=== PATIENT | female | born 1945 | race Caucasian/White ===

== ENCOUNTER 2018-12-09 05:26 | Emergency (ER) | payer MEDICARE ==
[2018-12-09 06:39] LABS: #Eosinphils 0.1 thou/uL (0.0-0.7); #Lymphocytes 0.9 thou/uL (1.20-3.40); #Monocytes 0.3 thou/uL (0.11-0.59); #Neutrophils 3.6 thou/uL (1.40-6.50); %Basophils 0.7 % (0.0-1.0); %Eosinophils 2.6 % (0.0-10.0); %Lymphocytes 18.1 % (21.0-51.0); %Monocytes 5.8 % (0.0-10.0); %Neutrophils 72.8 % (42.0-75.0); Hemoglobin 14.8 g/dL (12.0-16.0); Mean Corpuscular HGB CONC 33.7 g/dL (32.0-36.0); Mean Corpuscular Hemoglobin 30.9 pg (27.0-31.0); Mean Corpuscular Volume 91.8 fL (78.0-98.0); Mean Platelet Volume 6.8 fL (7.4-10.4); Platelet Count 224 thou/uL (130-400); RBC Distribution Width 12.1 % (11.5-14.5); Red Blood Cell (RBC) Count 4.79 mill/uL (4.20-5.40); White Blood Cell (WBC) Count 4.9 thou/uL (4.8-10.8)
[2018-12-09] MEDS ORDERED: Ondansetron ODT 4 MG TAB ONE (06:49)
[2018-12-09 07:03] LABS: ALT (SGPT) 17 U/L (8-55); AST (SGOT) 10 U/L (5-34); Albumin 4.2 g/dL (3.4-4.8); Alkaline Phosphatase 71 U/L (40-110); Anion Gap 10 mmol/L (10-20); BUN (Urea Nitrogen) 6 mg/dL (9.8-20.1); Bilirubin, Total 0.6 mg/dL (0.2-1.2); CK (CPK) 98 U/L (29-168); Calc. Creatinine Clearance 0 mL/min (70-130); Calcium 9.2 mg/dL (7.8-10.44); Carbon Dioxide 25 mmol/L (23-31); Chloride 106 mmol/L (98-107); Estimated GFR-MDRD 87; Globulin 2.4 g/dL (2.4-3.5); Glucose 112 mg/dL (83-110); Potassium 3.4 mmol/L (3.5-5.1); Protein, Total 6.6 g/dL (6.0-8.3); Sodium 138 mmol/L (136-145)
--- NOTE | 2018-12-09 07:41 | RAD ---
EXAM: Single view of the chest HISTORY: Chest palpitations COMPARISON: None FINDINGS: Single view of the chest shows a normal sized cardiomediastinal silhouette. There is no melissa dence of consolidation, mass, or pleural effusion. Degenerative changes are seen in the spine. IMPRESSION: No evidence of acute cardiopulmonary disease
--- NOTE | 2018-12-11 12:46 | EKG ---
Test Reason : Blood Pressure : / mmHG Vent. Rate : 085 BPM Atrial Rate : 085 BPM P-R Int : 148 ms QRS Dur : 080 ms QT Int : 360 ms P-R-T Axes : 056 -01 050 degrees QTc Int : 428 ms Normal sinus rhythm Moderate voltage criteria for LVH, may be normal variant Nonspecific ST abnormality Abnormal ECG Confirmed by MIHAI IYER D.O. ([id number]), video news editor VÍCTOR CAMEJO ([id number]) on 12/11/2018 12:46:43 PM Referred By: Confirmed By:MIHAI IYER D.O.
== END 2018-12-09 07:30 | disposition home or self-care (01) ==
LOC: ERS 05:26
DX: F41.9 Anxiety disorder, unspecified (principal); F41.0 Panic disorder [episodic paroxysmal anxiety]; Z79.899 Other long term (current) drug therapy
CPT/HCPCS: 36415; 71045; 80053; 82550; 84443; 84484; 85025; 93005; Q0162

== ENCOUNTER 2019-03-02 09:12 | Outpatient (CLI) | payer MEDICARE ==
[2019-03-02 11:39] LABS: #Basophils 0.1 thou/uL (0.0-0.2); #Eosinphils 0.2 thou/uL (0.0-0.7); #Lymphocytes 1.2 thou/uL (1.20-3.40); #Monocytes 0.4 thou/uL (0.11-0.59); #Neutrophils 5.9 thou/uL (1.40-6.50); %Basophils 0.7 % (0.0-1.0); %Eosinophils 2.2 % (0.0-10.0); %Monocytes 5.2 % (0.0-10.0); %Neutrophils 75.9 % (42.0-75.0); Hemoglobin 15.5 g/dL (12.0-16.0); Mean Corpuscular HGB CONC 32.9 g/dL (32.0-36.0); Mean Corpuscular Hemoglobin 30.8 pg (27.0-31.0); Mean Corpuscular Volume 93.5 fL (78.0-98.0); Mean Platelet Volume 7.6 fL (7.4-10.4); Platelet Count 253 thou/uL (130-400); RBC Distribution Width 12.3 % (11.5-14.5); Red Blood Cell (RBC) Count 5.05 mill/uL (4.20-5.40); White Blood Cell (WBC) Count 7.8 thou/uL (4.8-10.8)
[2019-03-02 12:01] LABS: ALT (SGPT) 17 U/L (8-55); AST (SGOT) 11 U/L (5-34); Albumin 4.4 g/dL (3.4-4.8); Alkaline Phosphatase 92 U/L (40-110); Anion Gap 10 mmol/L (10-20); BUN (Urea Nitrogen) 10 mg/dL (9.8-20.1); Bilirubin, Total 0.5 mg/dL (0.2-1.2); Calc. Creatinine Clearance 0 mL/min (70-130); Calcium 9.7 mg/dL (7.8-10.44); Carbon Dioxide 28 mmol/L (23-31); Chloride 106 mmol/L (98-107); Estimated GFR-MDRD 74; Globulin 2.7 g/dL (2.4-3.5); Glucose 122 mg/dL (83-110); Potassium 4.2 mmol/L (3.5-5.1); Protein, Total 7.1 g/dL (6.0-8.3); Sodium 140 mmol/L (136-145)
--- NOTE | 2019-03-04 15:21 | EKG ---
Test Reason : Blood Pressure : / mmHG Vent. Rate : 080 BPM Atrial Rate : 080 BPM P-R Int : 140 ms QRS Dur : 080 ms QT Int : 358 ms P-R-T Axes : 070 066 056 degrees QTc Int : 412 ms Normal sinus rhythm Cannot rule out Anterior infarct , age undetermined Abnormal ECG When compared with ECG of 09-DEC-2018 05:43, Questionable change in QRS axis Confirmed by DR. Manohar BROWN ([id number]) on 03/04/2019 3:20:48 PM Referred By: IVAN Confirmed By:DR. Manohar BROWN
== END 2019-03-02 09:13 | disposition home or self-care (01) ==
LOC: LABBT 09:12
PROVIDERS: ATTEND Surgery
DX: Z01.818 Encounter for other preprocedural examination (principal); K43.2 Incisional hernia without obstruction or gangrene
CPT/HCPCS: 80053; 85025; 93005; 93010

== ENCOUNTER 2019-03-07 05:45 | Day surgery (SDC) | payer MEDICARE ==
[2019-03-02 10:06] VITALS: BMI 24.9
[2019-03-07] MEDS ORDERED: Midazolam HCl 2 mg/2 ml Vial ONE (06:32)
[2019-03-07] MEDS ORDERED: Fentanyl 100 MCG/2 ML VIAL ONE ×2 (06:32→08:47)
[2019-03-07] MEDS ORDERED: HYDROmorphone 0.5 MG/0.5 ML SYRINGE ONE (06:32)
[2019-03-07] MEDS ORDERED: SUGAMMADEX SODIUM 200 MG/2 ML VIAL ONE (06:33)
[2019-03-07] MEDS ORDERED: Lidocaine 1% w/Epinephrine 1:100K 20 ML VIAL ONE (06:46)
[2019-03-07] MEDS ORDERED: Bupivacaine 0.25% HCL 30 ML VIAL ONE (06:46)
--- NOTE | 2019-03-07 09:40 | HP ---
CHIEF COMPLAINT: Abdominal wall hernia. HISTORY: A 74-year-old female who underwent a lap sigmoid resection for diverticulitis in February 2016, has developed a bulge under the umbilicus that is enlarging. PAST MEDICAL HISTORY: Back pain, prolapsed bladder, indigestion, anxiety, diverticulosis. PAST SURGICAL HISTORY: She has had a hysterectomy, lap sigmoid colectomy, colovesical fistula repair, basal cell carcinoma removal. MEDICATIONS: 1. Estrace. 2. Tumersaid. 3. B12. 4. Vitamin D. 5. Alprazolam. 6. Omeprazole. 7. Xanax. ALLERGIES: BACTRIM, GLUTEN, CODEINE, AND SUNSCREEN. FAMILY HISTORY: Father of heart disease. Mother of emphysema. SOCIAL HISTORY: She is . No tobacco. No alcohol. PHYSICAL EXAMINATION: VITAL SIGNS: Height 63, weight 144, body mass index 25. GENERAL: A well-developed, well-nourished female, in no apparent distress. HEENT: Unremarkable. LUNGS: Clear. HEART: Regular rate and rhythm. ABDOMEN: Shows a 4 cm defect just below the umbilicus that is reducible. EXTREMITIES: Good pulses, no pedal edema. ASSESSMENT: Incisional ventral hernia. PLAN: Laparoscopic ventral hernia repair with mesh. CONSENT: I have discussed planned procedure as well as risk of bleeding, infection, recurrence, injury to bowel. She understands and gives informed consent. Job ID: [id number]
[2019-03-07] MEDS ORDERED: Morphine 2 MG/ML SYRINGE ONE (09:57)
[2019-03-07] MEDS ORDERED: HYDROcodone/Acetaminophen 5/325 mg Tablet ONE ×2 (10:07→12:14)
--- NOTE | 2019-03-07 11:36 | OP ---
DATE OF PROCEDURE: 03/07/2019 PREOPERATIVE DIAGNOSIS: Incisional ventral hernia. PROCEDURE PERFORMED: Laparoscopic ventral hernia repair with mesh. INDICATIONS: This is a 74-year-old female, who had a sigmoid colon resection, developed a hernia. FINDINGS: She has a 3-cm defect, 12-cm piece of mesh used. DESCRIPTION OF PROCEDURE: After informed consent was obtained, the patient was taken to the operating room and given general endotracheal anesthesia. She was placed in supine position. Her abdomen and flank were prepped and draped in usual fashion. Local anesthesia was infiltrated subcutaneously and deep and a 12-mm incision was performed on the right flank. Veress needle inserted. Drop test performed. Pneumoperitoneum was created to a volume of 2 L of carbon dioxide. Utilizing a bladeless 12-mm trocar and 0-degree laparoscope, direct visual entry into the abdominal cavity was performed. Pneumoperitoneum was created to a pressure of 15 mmHg and under direct vision, two 5-mm ports were placed far lateral right abdomen. There were no adhesions to the anterior abdominal wall. The defect was closed transversely utilizing a 0 PDS V-Loc from left to right. Then, a 12-cm piece of PROCEED mesh was fashioned with four 0 Ethibond in 4 quadrants. This was hydrated, rolled, and introduced intra-abdominally. Then, the abdominal pressure was decreased to 12 and the sutures were individually grasped with the granny needle to position the mesh optimally. These were secured and then the mesh was further secured to the abdominal wall with SecureStrap Tacker. Hemostasis assured. Trocars and retractors removed. The skin closed with interrupted 4-0 Rapide. Dermabond applied and a sterile bandage applied and a binder applied. The patient tolerated the procedure well, transferred to Recovery in good condition. Sponge and needle count verified correct x2. Job ID: [id number]
[2019-03-07] MEDS ORDERED: Ondansetron ODT 4 MG TAB ONE (12:33)
[2019-03-07] MEDS ORDERED: Dexamethasone 20 MG/5 ML VIAL ONE (13:58)
[2019-03-07] MEDS ORDERED: Rocuronium Bromide 10 MG/ML (10ML VIAL) ONE (13:58)
[2019-03-07] MEDS ORDERED: PROPOFOL 200 MG/20 ML VIAL ONE (13:58)
[2019-03-07] MEDS ORDERED: Ondansetron PF 4 MG/2 ML Vial ONE (13:58)
== END 2019-03-07 13:13 | disposition home or self-care (01) ==
LOC: SDC 05:45
PROVIDERS: ATTEND Surgery
PROC: 0WUF4JZ Supplement Abdominal Wall with Synthetic Substitute, Percutaneous Endoscopic Approach (ICD-10-PCS; principal; 2019-03-07)
DX: K43.2 Incisional hernia without obstruction or gangrene (principal); Z79.899 Other long term (current) drug therapy; Z85.828 Personal history of other malignant neoplasm of skin; Z87.19 Personal history of other diseases of the digestive system; Z88.1 Allergy status to other antibiotic agents; Z88.2 Allergy status to sulfonamides; Z88.5 Allergy status to narcotic agent; Z90.49 Acquired absence of other specified parts of digestive tract; Z91.011 Allergy to milk products; Z91.018 Allergy to other foods; Z91.048 Other nonmedicinal substance allergy status
CPT/HCPCS: 49654; C1781; J0690; J1100; J1170; J2250; J2270; J2405; J2704; J3010; Q0162; S0020

== ENCOUNTER 2022-01-18 18:27 | Inpatient (IN) | payer MEDICARE ==
[~2022-01-18 18:27] MED LIST: Iopamidol-370 76% 500 ML 1 ML ONE
[2022-01-18] MEDS ORDERED: Ondansetron PF 4 MG/2 ML Vial ONE (18:57)
[2022-01-18] MEDS ORDERED: Ketorolac Tromethamine 30 MG/ML VIAL ONE (18:57)
[2022-01-18] MEDS ORDERED: Morphine 4 MG/ML VIAL ONE (18:58)
[2022-01-18 19:08] LABS: #Eosinphils 0.3 thou/uL (0.0-0.7); #Lymphocytes 2.8 thou/uL (1.20-3.40); #Monocytes 0.5 thou/uL (0.11-0.59); #Neutrophils 5.3 thou/uL (1.40-6.50); %Basophils 0.5 % (0.0-1.0); %Eosinophils 2.9 % (0.0-10.0); %Lymphocytes 31.1 % (21.0-51.0); %Monocytes 5.9 % (0.0-10.0); %Neutrophils 59.7 % (42.0-75.0); Hemoglobin 15.5 g/dL (12.0-16.0); Mean Corpuscular Hemoglobin 32.2 pg (27.0-31.0); Mean Corpuscular Volume 94.6 fl (78.0-98.0); Mean Platelet Volume 7.8 fL (7.4-10.4); Platelet Count 257 10x3/uL (130-400); RBC Distribution Width 12.4 % (11.5-14.5); Red Blood Cell (RBC) Count 4.82 mill/uL (4.20-5.40); White Blood Cell (WBC) Count 8.9 10x3/uL (4.8-10.8)
[2022-01-18 19:32] LABS: ALT (SGPT) 20 U/L (8-55); AST (SGOT) 11 U/L (5-34); Albumin 4.5 g/dL (3.4-4.8); Alkaline Phosphatase 106 U/L (40-110); Anion Gap 16 mmol/L (10-20); BUN (Urea Nitrogen) 13 mg/dL (9.8-20.1); Bilirubin, Total 0.3 mg/dL (0.2-1.2); Calc. Creatinine Clearance 0 mL/min (70-130); Calcium 10.4 mg/dL (7.8-10.44); Carbon Dioxide 21 mmol/L (23-31); Chloride 105 mmol/L (98-107); Estimated GFR 70; Globulin 3.1 g/dL (2.4-3.5); Glucose 133 mg/dL (83-110); Lipase 24 U/L (8-78); Potassium 3.1 mmol/L (3.5-5.1); Protein, Total 7.6 g/dL (5.8-8.1); Sodium 139 mmol/L (136-145)
[2022-01-18 20:44] LABS: Bacteria/HPF 4+ HPF (None Seen); Bilirubin Negative (Negative); Blood, Urine Trace (Negative); Clarity Turbid (Clear); Glucose, Urine (Dipstick) Normal (Negative); Ketone, Urine Negative (Negative); Leukocyte 250 Leu/uL (Negative); Nitrite 2+ (Negative); Protein, Urine (Dipstick) Negative (Neg-Trace); Specific Gravity, Urine 1.023 (1.002-1.036); Squamous Epithelial 0-3 HPF (0-3); Urobilinogen Normal mg/dL (Less than 2)
[2022-01-18] MEDS ORDERED: cefTRIAXone\\ROCEPHIN 1 GM VIAL ONE (21:31)
[2022-01-18] MEDS ORDERED: Ondansetron ODT 4 MG TAB PO PRN (22:07)
[2022-01-18] MEDS ORDERED: Senokot S 8.6-50 MG TAB PO PRN (22:07)
[2022-01-18] MEDS ORDERED: Acetaminophen 325 MG TAB PO PRN (22:07)
[2022-01-18] MEDS ORDERED: Dextrose 5 %-0.45 % NaCl 1,000 ML IV SCH (22:15)
[2022-01-18] MEDS ORDERED: Morphine 4 MG/ML VIAL SLOW IVP PRN (22:27)
[2022-01-18] MEDS ORDERED: Vancomycin 1 GM/200 ML (FROZEN) BAG ONE (22:31)
[2022-01-18] MEDS ORDERED: Potassium Chloride 20 MEQ TAB ONE (22:31)
[2022-01-18 22:47] LABS: Lactic Acid 1.5 mmol/L (0.5-2.2)
[2022-01-19 00:17] VITALS: BMI 25.3
[2022-01-19 07:50] LABS: #Eosinphils 0.1 thou/uL (0.0-0.7); #Lymphocytes 1.1 thou/uL (1.20-3.40); #Monocytes 0.6 thou/uL (0.11-0.59); #Neutrophils 8.5 thou/uL (1.40-6.50); %Basophils 0.1 % (0.0-1.0); %Eosinophils 0.5 % (0.0-10.0); %Lymphocytes 10.4 % (21.0-51.0); %Monocytes 5.6 % (0.0-10.0); %Neutrophils 83.4 % (42.0-75.0); Hemoglobin 13.5 g/dL (12.0-16.0); Mean Corpuscular Hemoglobin 31.2 pg (27.0-31.0); Mean Corpuscular Volume 97.7 fl (78.0-98.0); Mean Platelet Volume 7.4 fL (7.4-10.4); Platelet Count 200 10x3/uL (130-400); RBC Distribution Width 12.5 % (11.5-14.5); Red Blood Cell (RBC) Count 4.33 mill/uL (4.20-5.40); White Blood Cell (WBC) Count 10.1 10x3/uL (4.8-10.8)
[2022-01-19 08:04] LABS: Anion Gap 11 mmol/L (10-20); BUN (Urea Nitrogen) 8 mg/dL (9.8-20.1); Calc. Creatinine Clearance 75 mL/min (70-130); Calcium 8.7 mg/dL (7.8-10.44); Carbon Dioxide 23 mmol/L (23-31); Chloride 110 mmol/L (98-107); Estimated GFR 90; Glucose 109 mg/dL (83-110); Potassium 3.8 mmol/L (3.5-5.1); Sodium 140 mmol/L (136-145)
[2022-01-19] MEDS: Cefepime 2 GM in Sodium Chloride 0.9% 100 ML IVPB SCH ×2 (09:29→21:26)
[2022-01-19] MEDS ORDERED: Bisacodyl 5 MG TAB PO SCH (10:30)
[2022-01-19] MEDS: Potassium Citrate 1100-334mg/5ml Oral Solution PO SCH (21:27)
[2022-01-20] MEDS: Potassium Citrate 1100-334mg/5ml Oral Solution PO SCH ×2 (06:35→12:46)
[2022-01-20] MEDS ORDERED: Tamsulosin HCl 0.4 MG CAP PO SCH (09:00)
[2022-01-20] MEDS ORDERED: Allopurinol 300 MG TAB PO SCH (09:00)
[2022-01-20] MEDS ORDERED: Polyethylene Glycol 3350 17 GM Packet PO SCH (09:00)
[2022-01-20] MEDS: Cefepime 2 GM in Sodium Chloride 0.9% 100 ML IVPB SCH (09:34)
[2022-01-20] MEDS ORDERED: cefTRIAXone\\ROCEPHIN 2 GM in Sodium Chloride 0.9% 100 ML IVPB SCH (10:00)
[2022-01-20] MEDS ORDERED: Cefdinir 300 MG CAP PO SCH (12:15)
[2022-01-20 12:31] VITALS: BP 134/78; TEMP 97.8
== END 2022-01-20 13:57 | disposition home or self-care (01) | DRG 690 ==
LOC: ERS 18:27 → INTOOBSV 21:59 → SURG B 21:59 → OBSVTOIN 01-20 13:30
PROVIDERS: ADMIT Student in an Organized Health Care Education/Training Program; ATTEND Internal Medicine
DX: N12 Tubulo-interstitial nephritis, not specified as acute or chronic (principal); E87.20 Acidosis, unspecified; E87.6 Hypokalemia; Z20.822 Contact with and (suspected) exposure to COVID-19; E27.8 Other specified disorders of adrenal gland; B96.20 Unspecified Escherichia coli [E. coli] as the cause of diseases classified elsewhere; N20.0 Calculus of kidney; I10 Essential (primary) hypertension; Z90.49 Acquired absence of other specified parts of digestive tract; Z88.6 Allergy status to analgesic agent; Z88.2 Allergy status to sulfonamides; Z88.8 Allergy status to other drugs, medicaments and biological substances; Z79.899 Other long term (current) drug therapy; Z90.710 Acquired absence of both cervix and uterus; Z98.41 Cataract extraction status, right eye; Z98.42 Cataract extraction status, left eye; Z90.89 Acquired absence of other organs
CPT/HCPCS: 36415; 71275; 74018; 74174; 80048; 80053; 81003; 81015; 83605; 83690; 84484; 85025; 87040; 87077; 87086; 87186; 93005; 96366; 96367; 96372; 96376; G0378; J0692; J0696; J1885; J2270; J2405; J3370-JW; J3490; J7042; Q0162; U0003; U0005

== ENCOUNTER 2022-10-26 10:01 | Inpatient (IN) | payer MEDICARE ==
[2022-10-26 10:27] LABS: #Eosinphils 0.1 thou/uL (0.0-0.7); #Monocytes 0.3 thou/uL (0.11-0.59); #Neutrophils 6.3 thou/uL (1.40-6.50); %Basophils 0.3 % (0.0-1.0); %Eosinophils 1.2 % (0.0-10.0); %Lymphocytes 12.9 % (21.0-51.0); %Monocytes 4.1 % (0.0-10.0); Mean Corpuscular HGB CONC 33.3 g/dL (32.0-36.0); Mean Corpuscular Hemoglobin 31.7 pg (27.0-31.0); Mean Corpuscular Volume 95.1 fl (78.0-98.0); Mean Platelet Volume 9.4 fL (7.4-10.4); Platelet Count 236 10x3/uL (130-400); RBC Distribution Width 13.1 % (11.5-14.5); Red Blood Cell (RBC) Count 4.73 mill/uL (4.20-5.40); White Blood Cell (WBC) Count 7.7 10x3/uL (4.8-10.8)
[2022-10-26] MEDS ORDERED: Ondansetron PF 4 MG/2 ML Vial ONE (10:34)
[2022-10-26 10:42] LABS: Bacteria/HPF 1+ HPF (None Seen); Bilirubin Negative (Negative); Blood, Urine Negative (Negative); CAUTI Indications for Culture Dysuria,urgency,freq; Clarity Turbid (Clear); Glucose, Urine (Dipstick) Normal (Negative); Ketone, Urine Negative (Negative); Leukocyte 500 Leu/uL (Negative); Nitrite Negative (Negative); Protein, Urine (Dipstick) Negative (Neg-Trace); RBC/HPF 0-3 HPF (0-3); Urobilinogen Normal mg/dL (Less than 2); WBC/HPF Greater than 50 HPF (0-3); pH, Urine 7.5 (5.0-9.0)
[2022-10-26 10:44] LABS: Urine Culture Reflex Yes Yes
[2022-10-26] MEDS ORDERED: Ketorolac Tromethamine 30 MG/ML VIAL ONE ×2 (10:46→14:49)
[2022-10-26 10:52] LABS: ALT (SGPT) 16 U/L (8-55); AST (SGOT) 11 U/L (5-34); Albumin 4.2 g/dL (3.4-4.8); Alkaline Phosphatase 68 U/L (40-110); Anion Gap 17 mmol/L (10-20); BUN (Urea Nitrogen) 14 mg/dL (9.8-20.1); Bilirubin, Total 0.7 mg/dL (0.2-1.2); Calc. Creatinine Clearance 0 mL/min (70-130); Calcium 9.7 mg/dL (7.8-10.44); Carbon Dioxide 20 mmol/L (23-31); Chloride 105 mmol/L (98-107); Estimated GFR 59; Globulin 2.8 g/dL (2.4-3.5); Glucose 135 mg/dL (83-110); Sodium 138 mmol/L (136-145)
[2022-10-26] MEDS ORDERED: Morphine 4 MG/ML VIAL ONE (12:47)
[2022-10-26] MEDS ORDERED: Promethazine HCl 25 MG/ML VIAL ONE (12:56)
[2022-10-26] MEDS ORDERED: cefTRIAXone (ROCEPHIN) 1 GM VIAL ONE (13:52)
[2022-10-26] MEDS ORDERED: Guaifenesin DM 100-10/5 ML UDCUP PO PRN (14:32)
[2022-10-26] MEDS ORDERED: Ondansetron PF 4 MG/2 ML Vial IVP PRN (14:32)
[2022-10-26] MEDS ORDERED: Senokot S 8.6-50 MG TAB PO PRN (14:32)
[2022-10-26] MEDS ORDERED: Acetaminophen 325 MG TAB PO PRN (14:32)
[2022-10-26] MEDS ORDERED: Sodium Chloride 0.9% 1,000 ML IV SCH (14:45)
[2022-10-26 18:02] VITALS: BMI 24.6
[2022-10-26] MEDS ORDERED: Ketorolac Tromethamine 30 MG/ML VIAL IVP PRN (18:13)
[2022-10-26] MEDS ORDERED: Famotidine/PF 20 mg/2ml Vial SLOW IVP SCH (21:00)
[2022-10-27] MEDS ORDERED: Ondansetron PF 4 MG/2 ML Vial IVP PRN (04:19)
[2022-10-27] MEDS ORDERED: Guaifenesin DM 100-10/5 ML UDCUP PO PRN (04:20)
[2022-10-27] MEDS ORDERED: Ketorolac Tromethamine 30 MG/ML VIAL IVP PRN (04:20)
[2022-10-27] MEDS ORDERED: Senokot S 8.6-50 MG TAB PO PRN (04:20)
[2022-10-27] MEDS: Acetaminophen 325 MG TAB PO PRN (04:26)
[2022-10-27] MEDS: Famotidine/PF 20 mg/2ml Vial SLOW IVP SCH ×2 (08:30→20:31)
[2022-10-27] MEDS ORDERED: cefTRIAXone\\ROCEPHIN 1 GM in Sodium Chloride 0.9% 100 ML IVPB SCH (14:00)
[2022-10-27] MEDS ORDERED: fentaNYL PF 100 MCG/2 ML SYRINGE ONE (17:52)
[2022-10-27] MEDS ORDERED: Lidocaine 1% PF 5 ML VIAL ONE (18:27)
[2022-10-27] MEDS ORDERED: Ondansetron PF 4 MG/2 ML Vial ONE (18:27)
[2022-10-27] MEDS ORDERED: PROPOFOL 200 MG/20 ML VIAL ONE (18:27)
[2022-10-27] MEDS ORDERED: Dexamethasone 20 MG/5 ML VIAL ONE (18:27)
[2022-10-27] MEDS ORDERED: Ondansetron HCl/PF 4 MG/2 ML Vial IVP PRN (19:04)
[2022-10-27] MEDS ORDERED: Promethazine HCl 25 MG/ML VIAL IM PRN (19:04)
[2022-10-28 08:17] VITALS: BP 168/71; TEMP 97.5
[2022-10-28] MEDS: Acetaminophen 325 MG TAB PO PRN (09:13)
[2022-10-28] MEDS: Famotidine/PF 20 mg/2ml Vial SLOW IVP SCH (09:14)
== END 2022-10-28 11:40 | disposition home or self-care (01) | DRG 661 ==
LOC: ERS 10:01 → SURG A 14:32 → ERS 16:56 → OBSVTOIN 10-27 17:46
PROVIDERS: ADMIT Hospitalist; ATTEND Emergency Medicine
PROC: 0T778DZ Dilation of Left Ureter with Intraluminal Device, Via Natural or Artificial Opening Endoscopic (ICD-10-PCS; principal; 2022-10-27)
DX: N10 Acute pyelonephritis (principal); N13.6 Pyonephrosis; B96.20 Unspecified Escherichia coli [E. coli] as the cause of diseases classified elsewhere; F41.9 Anxiety disorder, unspecified; Z88.5 Allergy status to narcotic agent; Z88.2 Allergy status to sulfonamides; Z88.8 Allergy status to other drugs, medicaments and biological substances; Z79.899 Other long term (current) drug therapy; Z98.890 Other specified postprocedural states; Z90.710 Acquired absence of both cervix and uterus; Z90.89 Acquired absence of other organs; Z98.41 Cataract extraction status, right eye; Z98.42 Cataract extraction status, left eye; Z88.1 Allergy status to other antibiotic agents; Z82.49 Family history of ischemic heart disease and other diseases of the circulatory system
CPT/HCPCS: 36415; 74176; 74420; 80053; 81001; 83690; 85025; 87077; 87086; 87186; 96361; 96365; 96367; 96375; 96376; C2617; G0378; J0696; J1100; J1885; J2270; J2405; J2550; J2704; J3490; J7050; S0028

== ENCOUNTER 2022-10-29 11:17 | Outpatient (CLI) | payer MEDICARE ==
[2022-10-29 13:01] LABS: INR-International Normal Ratio 0.9; PTT 24.7 sec (22.0-33.0); Prothrombin Time 9.3 sec (9.5-12.1)
== END 2022-10-29 11:18 | disposition home or self-care (01) ==
LOC: LABBT 11:17
PROVIDERS: ATTEND Urology
DX: Z01.812 Encounter for preprocedural laboratory examination (principal); N20.1 Calculus of ureter
CPT/HCPCS: 85610; 85730; 87086

== ENCOUNTER 2022-11-03 09:19 | Day surgery (SDC) | payer MEDICARE ==
[2022-10-29 12:16] VITALS: BMI 24.6
[2022-11-03] MEDS ORDERED: Famotidine/PF 20 mg/2ml Vial ONE ×2 (10:03→12:46)
[2022-11-03] MEDS ORDERED: LevoFLOXacin 500 mg/D5W 100 ML BAG ONE (12:40)
[2022-11-03] MEDS ORDERED: SUGAMMADEX SODIUM 200 MG/2 ML VIAL ONE (12:46)
[2022-11-03] MEDS ORDERED: fentaNYL 50 mcg/mL 1 mL Vial ONE ×2 (12:46)
[2022-11-03] MEDS ORDERED: Iopamidol 15 ML ONE ×2 (12:49→14:00)
[2022-11-03] MEDS ORDERED: Lidocaine 1% PF 5 ML VIAL ONE (12:58)
[2022-11-03] MEDS ORDERED: PROPOFOL 200 MG/20 ML VIAL ONE (12:58)
[2022-11-03] MEDS ORDERED: Rocuronium Bromide 10 MG/ML (10ML VIAL) ONE (12:58)
[2022-11-03] MEDS ORDERED: Ondansetron PF 4 MG/2 ML Vial ONE ×2 (12:58→14:20)
[2022-11-03] MEDS ORDERED: PHENYLEPHRINE-NS 100 MCG/ML 10 ML SYRINGE ONE (12:58)
[2022-11-03] MEDS ORDERED: Dexamethasone 20 MG/5 ML VIAL ONE (12:58)
[2022-11-03] MEDS ORDERED: NEOSTIGMINE 3 MG/3 ML SYR 3 MG/3 ML SYRINGE ONE (12:58)
[2022-11-03] MEDS ORDERED: Loperamide HCl 2 MG CAP PO SCH (15:15)
== END 2022-11-03 15:40 | disposition home or self-care (01) ==
LOC: SDC 09:19
PROVIDERS: ATTEND Urology
PROC: 0TC78ZZ Extirpation of Matter from Left Ureter, Via Natural or Artificial Opening Endoscopic (ICD-10-PCS; principal; 2022-11-03)
PROC: 0T778DZ Dilation of Left Ureter with Intraluminal Device, Via Natural or Artificial Opening Endoscopic (ICD-10-PCS; 2022-11-03)
DX: N20.1 Calculus of ureter (principal); Z88.2 Allergy status to sulfonamides; Z88.5 Allergy status to narcotic agent; Z90.710 Acquired absence of both cervix and uterus; Z98.890 Other specified postprocedural states; Z91.011 Allergy to milk products; Z79.899 Other long term (current) drug therapy
CPT/HCPCS: 52356; 74420; C1747; C1769; C2617; J3010; J1100; J1956; J2405; J2704; Q9967; S0028